=== PATIENT | male | born 1970 | race Two or more races ===

== ENCOUNTER 2019-12-22 21:13 | Emergency (ER) | payer OTHER ==
[~2019-12-22] VITALS: Ht 185.4 cm; Wt 117.9 kg
[2019-12-22] MEDS ORDERED: [UNRECOGNIZED DRUG - REMARK] (21:27)
[2019-12-22] MEDS ORDERED: [UNRECOGNIZED DRUG - REMARK] (21:27)
[2019-12-22] MEDS ORDERED: [UNRECOGNIZED DRUG - REMARK] (21:27)
[2019-12-22] MEDS ORDERED: [UNRECOGNIZED DRUG - REMARK] (21:27)
[2019-12-22] MEDS ORDERED: [UNRECOGNIZED DRUG - REMARK] (21:27)
[2019-12-22] MEDS ORDERED: IV D5W-0.45% NS 1000 ML BAG IV ONE (21:30)
[2019-12-22] MEDS ORDERED: THIAMINE HCL INJ 100 MG in IV DEXTROSE 5% 50 ML IV SCH (21:30)
--- NOTE | 2019-12-22 21:30 | NUR ---
Patient BIB [id number]. Patient was found lying on the sidewalk. A/Ox4. Speech is clear, speaks in complete sentences. Patient stated he had a few beers, and some hard liquor. No acute neuro deficits noted, patient is able to move all extremities with great strength, facial symmetry. No cardiovascular distress noted, all pulses palpable, denies any cp or palpitations. No respiratory distress noted, no cough or sob. Denies any n/v/d, or any gu symptoms at this time. Patient in bed at lowest position, connected to the monitor, sr upx2, call light within reach. Will continue to monitor.
[2019-12-22 21:47] LABS: BASOPHILS % (AUTO) 0.4 % (0.0-2.0); EOSINOPHILS # (AUTO) 0.2 K/uL (0.0-0.7); EOSINOPHILS % (AUTO) 2.2 % (0.0-7.0); HEMATOCRIT 36.6 % (36.7-47.1); HEMOGLOBIN 12.6 g/dL (12.5-16.3); LYMPHOCYTES % (AUTO) 28.2 % (20.5-51.5); MEAN CORPUSCULAR HEMOGLOBIN 31.1 uug (23.8-33.4); MEAN CORPUSCULAR HGB CONC 34 g/dL (32.5-36.3); MEAN CORPUSCULAR VOLUME 90.5 fL (73.0-96.2); MONOCYTES # (AUTO) 0.5 K/uL (2.0-10.0); MONOCYTES % (AUTO) 7.1 % (0.0-11.0); NEUTROPHILS # (AUTO) 4.5 K/uL (1.8-8.9); NEUTROPHILS % (AUTO) 62.1 % (38.5-71.5); PLATELET COUNT (AUTO) 192 K/uL (152-348); RED BLOOD CELL COUNT(AUTO) 4.04 MIL/uL (4.06-5.63); WHITE BLOOD COUNT (AUTO) 7.2 K/uL (3.6-10.2)
--- NOTE | 2019-12-22 21:49 | NUR ---
Patient transported to CT in stable condition.
[2019-12-22 21:51] LABS: CARBON DIOXIDE 24 mmol/L (21-32); CHLORIDE 91 mmol/L (98-107); CREATININE 0.9 mg/dL (0.6-1.3); GLUCOSE 85 mg/dL (74-106); POTASSIUM 3.1 mmol/L (3.5-5.1); UREA NITROGEN, BLOOD 14 mg/dL (7-18)
[2019-12-22 21:56] LABS: ETHANOL 209 MG/DL (0-0)
[2019-12-22 21:58] LABS: ALANINE AMINOTRANSFERASE 26 U/L (16-63); ALKALINE PHOSPHATASE 68 U/L (50-136); ASPARTATE AMINOTRANSFERASE 22 U/L (15-37); BILIRUBIN,DIRECT 0.2 mg/dL (0.0-0.2); BILIRUBIN,TOTAL 0.6 mg/dL (0.2-1.0); CREATINE KINASE, TOTAL 252 U/L (39-308); TOTAL PROTEIN, SERUM 7.5 g/dL (6.4-8.2)
[2019-12-22 21:59] LABS: ACETAMINOPHEN < 2.0 ug/mL (10-30)
--- NOTE | 2019-12-22 22:08 | NUR ---
Patient back in room from CT in stable condition. VSS
[2019-12-22] MEDS ORDERED: THIAMINE HCL 200 MG/2 ML VIAL ONE (22:18)
[2019-12-22] MEDS ORDERED: IV NORMAL SALINE 500 ML BAG IV ONE (22:30)
--- NOTE | 2019-12-23 00:17 | NUR ---
Patient does not wish to proceed with medical care recommended by Dr. Louis. Patient given information related to possible complications, up to and including , which could occur as a result of leaving the hospital at this time. Patient verbalizes understanding of risks involved due to leaving against medical advice. Patient has signed AMA form. Patient is able to ambulate with stable gait.
[2019-12-23 00:23] VITALS: BP 123/75
== END 2019-12-23 00:23 | disposition left against medical advice (07) ==
LOC: ER 21:15
DX: F10.129 Alcohol abuse with intoxication, unspecified (principal); Y90.7 Blood alcohol level of 200-239 mg/100 ml; E87.1 Hypo-osmolality and hyponatremia; I10 Essential (primary) hypertension; J98.11 Atelectasis; G20 Parkinson's disease
CPT/HCPCS: 36415; 70450; 71045; 80048; 80076; 80307; 82550; 82962; 83690; 84484; 85025; 93005; 96361; 96374; 99285; G0480 ×2; J3411; 70030-TC